=== PATIENT | female | born 1965 | race Caucasian/White ===

== ENCOUNTER 2017-12-11 21:49 | Emergency (ER) | payer BC ==
--- NOTE | 2017-12-11 22:03 | ER Report ---
History and Physical Time Seen By MD: 22:02 Hx. of Stated Complaint: last seizure 18-19 years. tonight she tripped over a little one, landed on her butt and hit her head. a little while later she "passed out" with jaw clench, "pooped herself". happened around 7:30ish HPI/ROS CHIEF COMPLAINT: hit head, possible seizure HISTORY OF PRESENT ILLNESS: This is a 52 year old female. She had fallen backward and landed on her bottom, but hit the back of her head on a bench or something. Was dazed, but did not pass out. Was feeling a little dizzy and having headache. Sitting up and feeling dizzy. She ended up passing out. stated that her left eye began to droop, her jaw clenched and she passed out. No generalized seizure like activity. Did not bite her tongue, but family was trying to protect against this. She did loose control of bowels. This lasted about 2 minutes, estimate from her . She awoke and no evidence of post-ictal or groggy state. She cleaned herself up and then they came here to the ER. She is alert and oriented. She has a headache in the back of her head. Mild nausea. Mild dizziness, more of an off balance feeling. No vision changes. She has a history of two seizures in the past, about 18 years ago. She was on Lamictal after that for a time, but weaned herself off a few years after and has never had any other problems. No recent illnesses. Was feeling fine prior to the fall tonight. Denies any weakness or numbness. Allergies: Coded Allergies: No Known Drug Allergies (Unverified , 12/11/17) Home Meds Active Scripts Ondansetron (ZOFRAN ODT) 4 Mg Tab.rapdis, 4 MG PO Q6H Y for NAUSEA/VOMITING, # 20 TAB.ELYSE 0 Refills Prov:HELGA WRAY MD 12/12/17 Reviewed Nurses Notes: Yes Hx Substance Use Disorder: No Hx Alcohol Use: Yes (social) Constitutional Vital Sign - Last 24 Hours 12/11/17 12/11/17 12/11/17 12/11/17 21:52 21:54 22:00 22:04 Temp 98.1 Pulse 88 91 Resp 12 B/P (MAP) 140/81 140/81 (100) 147/89 (108) Pulse Ox 95 95 O2 Delivery Room Air 12/11/17 12/11/17 12/11/17 12/11/17 22:19 22:30 22:34 23:00 Pulse 88 ??? Resp 9 B/P (MAP) 139/85 (103) 118/67 (84) Pulse Ox 95 12/11/17 12/11/17 12/11/17 12/11/17 23:04 23:19 23:30 23:34 Pulse 82 78 77 Resp 13 B/P (MAP) 134/70 (91) Pulse Ox 94 93 92 12/11/17 12/11/17 23:39 23:54 Pulse ??? 80 Pulse Ox 93 93 Physical Exam General Appearance: The patient is alert. No acute distress. Eyes: Pupils are equal, round. Reactive to light. No pallor, injection or icterus. Extraocular movements are intact. ENT: Mucous membranes are moist. Normal oral mucosa. Posterior oropharynx is normal. Neck: Supple and non tender. No lymphadenopathy. Respiratory: Lungs are clear to auscultation. Cardiovascular: Regular rate and rhythm. No murmurs, gallops or rubs. Normal capillary refill. Gastrointestinal: Abdomen is soft and non tender. Nondistended. Normal active bowel sounds. Neurological: Alert and oriented x3. Cranial nerves II through XII show no acute deficits on my exam. No focal neurologic deficits in the extremities. Skin: Warm and dry. No rashes. Musculoskeletal: No hematoma or injury noted on the head or scalp. No other pain or injury. No tenderness in palpation of the cervical, thoracic and lumbar spine. DIFFERENTIAL DIAGNOSIS: After history and physical exam, differential diagnosis was considered for head injury, passing out with activity that seems to be a seizure, with jaw clench and loss of bowel, but no tongue biting or post-ictal state. Looking for head injury, bleed, etc. Medical Decision Making Data Points Result Diagram: 12/11/17220912/11/172209 Laboratory Hematology Test 12/11/17 22:10 Red Blood Count 4.96 M/uL (4.17-5.56) Mean Corpuscular Volume 96.0 fL (80.0-96.0) Mean Corpuscular Hemoglobin 33.6 pg (26.0-33.0) Mean Corpuscular Hemoglobin Concent 35.0 g/dL (32.0-36.0) Red Cell Distribution Width 12.9 % (11.5-14.5) Mean Platelet Volume 8.0 fL (7.2-11.1) Neutrophils (%) (Auto) 83.8 % (39.4-72.5) Lymphocytes (%) (Auto) 12.3 % (17.6-49.6) Monocytes (%) (Auto) 3.3 % (4.1-12.4) Eosinophils (%) (Auto) 0.3 % (0.4-6.7) Basophils (%) (Auto) 0.3 % (0.3-1.4) Nucleated RBC Relative Count (auto) 0.0 /100WBC Neutrophils # (Auto) 11.3 K/uL (2.0-7.4) Lymphocytes # (Auto) 1.7 K/uL (1.3-3.6) Monocytes # (Auto) 0.4 K/uL (0.3-1.0) Eosinophils # (Auto) 0.0 K/uL (0.0-0.5) Basophils # (Auto) 0.0 K/uL (0.0-0.1) Nucleated RBC Absolute Count (auto) 0.01 K/uL Prothrombin Time 12.5 seconds (12.0-14.4) Prothromb Time International Ratio 0.93 Activated Partial Thromboplast Time 26 seconds (23-35) Sodium Level 138 mmol/L (137-145) Potassium Level 3.8 mmol/L (3.5-5.0) Chloride Level 103 mmol/L (98-107) Carbon Dioxide Level 22 mmol/L (22-31) Blood Urea Nitrogen 8 mg/dl (7-18) Creatinine 0.70 mg/dl (0.52-1.04) Glomerular Filtration Rate Calc > 60.0 Random Glucose 117 mg/dl (75-110) Calcium Level 9.0 mg/dl (8.4-10.2) Total Bilirubin 0.3 mg/dl (0.2-1.3) Aspartate Amino Transf (AST/SGOT) 24 U/L (0-35) Alanine Aminotransferase (ALT/SGPT) 32 U/L (0-56) Alkaline Phosphatase 72 U/L (0-126) Total Protein 7.5 g/dl (6.3-8.2) Albumin 4.6 g/dl (3.5-5.0) Chemistry Test 12/11/17 22:10 White Blood Count 13.5 k/uL (4.5-11.0) Red Blood Count 4.96 M/uL (4.17-5.56) Hemoglobin 16.7 g/dL (12.0-16.0) Hematocrit 47.6 % (34.0-47.0) Mean Corpuscular Volume 96.0 fL (80.0-96.0) Mean Corpuscular Hemoglobin 33.6 pg (26.0-33.0) Mean Corpuscular Hemoglobin Concent 35.0 g/dL (32.0-36.0) Red Cell Distribution Width 12.9 % (11.5-14.5) Platelet Count 258 K/uL (150-450) Mean Platelet Volume 8.0 fL (7.2-11.1) Neutrophils (%) (Auto) 83.8 % (39.4-72.5) Lymphocytes (%) (Auto) 12.3 % (17.6-49.6) Monocytes (%) (Auto) 3.3 % (4.1-12.4) Eosinophils (%) (Auto) 0.3 % (0.4-6.7) Basophils (%) (Auto) 0.3 % (0.3-1.4) Nucleated RBC Relative Count (auto) 0.0 /100WBC Neutrophils # (Auto) 11.3 K/uL (2.0-7.4) Lymphocytes # (Auto) 1.7 K/uL (1.3-3.6) Monocytes # (Auto) 0.4 K/uL (0.3-1.0) Eosinophils # (Auto) 0.0 K/uL (0.0-0.5) Basophils # (Auto) 0.0 K/uL (0.0-0.1) Nucleated RBC Absolute Count (auto) 0.01 K/uL Prothrombin Time 12.5 seconds (12.0-14.4) Prothromb Time International Ratio 0.93 Activated Partial Thromboplast Time 26 seconds (23-35) Glomerular Filtration Rate Calc > 60.0 Calcium Level 9.0 mg/dl (8.4-10.2) Total Bilirubin 0.3 mg/dl (0.2-1.3) Aspartate Amino Transf (AST/SGOT) 24 U/L (0-35) Alanine Aminotransferase (ALT/SGPT) 32 U/L (0-56) Alkaline Phosphatase 72 U/L (0-126) Total Protein 7.5 g/dl (6.3-8.2) Albumin 4.6 g/dl (3.5-5.0) Coagulation Test 12/11/17 22:10 Prothrombin Time 12.5 seconds Prothromb Time International Ratio 0.93 Activated Partial Thromboplast Time 26 seconds EKG/Imaging Imaging CT obtained: Head without contrast. Results: normal, no acute problems. The study was read by the radiologist and was discussed with me. I viewed the images myself on the PACS system. ED Course/Re-evaluation Clinical Indication for ER IV: IV Access ED Course Mild increase in white count and H/H, but normal platelets and coags. Normal comprehensive metabolic panel. Head CT negative as noted. Reviewed this information with the patient and her . This appears to have most likely been a head injury with subsequent syncopal episode, with presence of mild concussion. This based on timing and events, and lack of post ictal state. However, the past history of seizures and the loss of bowel would argue for possible seizure. She will follow-up with her primary care provider. Counseled not to drive until cleared by her doctor. Other precautions for possible seizure were discussed as well. Discussed treatment for concussion as well. Decision to Disposition Date: Dec 11, 2017 Decision to Disposition Time: 23:56 Depart Departure Latest Vital Signs Vital Signs Date Time Temp Pulse Resp B/P (MAP) Pulse Ox O2 Delivery O2 Flow Rate FiO2 12/11/17 23:54 80 93 12/11/17 23:30 134/70 (91) 12/11/17 23:04 13 12/11/17 21:52 98.1 Room Air Impression: Primary Impression: Syncope and collapse Additional Impression: Concussion Condition: Improved Disposition: HOME OR SELF-CARE New Scripts Ondansetron (ZOFRAN ODT) 4 Mg Tab.rapdis 4 MG PO Q6H Y for NAUSEA/VOMITING, #20 TAB.ELYSE 0 Refills Prov: HELGA WRAY MD 12/12/17 Patient Instructions: Concussion (ED), Syncope (ED) Additional Instructions: Concussion symptoms include: headache, nausea/vomiting, dizziness, difficulty concentrating, blurred vision. These symptoms can be mild or moderate. If symptoms become severe, follow-up evaluation is needed. Avoid any heavy physical activity and avoid any activities that may cause repeat head injury. Concussion symptoms can last for days or weeks. There is no way to predict how long these will last. It is okay to sleep after a head injury. Just make sure someone is with you for the next 12 hours and that they check 1-2 hours to make sure you are still doing okay. Return to the ER for any altered mental status changes or confusion, or if one pupil is larger than the other, or if there are other abnormal or severe changes. Use Tylenol as needed for pain for the next 12-24 hours. You can begin using Ibuprofen after about 24 hours. Do not take any medicines containing aspirin for several days. We do not think that this was a seizure, but instead a syncopal episode ( passing out). However, we would tell you not to drive until cleared by primary care or neurology. Avoid any activities that would be dangerous to you or others should you have a seizure while performing the activity. Problem Qualifiers Additional Impression: Concussion Encounter type: initial encounter Loss of consciousness presence/duration: with LOC of 30 min or less Qualified Codes: S06.0X1A - Concussion with loss of consciousness of 30 minutes or less, initial encounter HELGA WRAY MD Dec 11, 2017 22:03
[2017-12-11 22:39] LABS: INR 0.93
[2017-12-11 22:44] LABS: PLATELET COUNT, AUTOMATED 258 K/uL (150-450)
[2017-12-11] MEDS ORDERED: ONDANSETRON 4 MG/2 ML VIAL IVP ONE (22:50)
--- NOTE | 2017-12-11 22:51 | EKG ---
[place] [facility] [place] SOLEDAD ROJAS : [id number] MR: [id number] V: [id number] EXAM DATE: ORDERING PHYSICIAN: HELGA WRAY TECHNOLOGIST: МАРИЯ Sanchez Reason : Blood Pressure : / mmHG Vent. Rate : 093 BPM Atrial Rate : 093 BPM P-R Int : 134 ms QRS Dur : 086 ms QT Int : 378 ms P-R-T Axes : 075 087 055 degrees QTc Int : 469 ms Normal sinus rhythm Possible Left atrial enlargement Nonspecific ST-T findings Prolonged QT Abnormal ECG No previous ECGs available Confirmed by CALVIN YUN ([id number]) on 12/12/2017 6:06:52 AM Referred By: Confirmed By:CALVIN YUN
[2017-12-11 23:30] VITALS: BP 134/70
[2017-12-12] MEDS ORDERED: ONDA4TAB PO (00:01)
[2017-12-12] MEDS ORDERED: ONDANSETRON 4 MG ODT TH SL ONE (00:05)
--- NOTE | 2017-12-12 07:58 | RADIOLOGY IMAGING REPORT ---
FACILITY: [facility] PATIENT NAME: Ramya Salinas : 1965 MR: [id number] V: [id number] EXAM DATE: ORDERING PHYSICIAN: HELGA WRAY TECHNOLOGIST: [place] [facility] [place] Ramya Sal[place] : 1965 Visit/Account:[id number] Date of Sevice: 12/11/2017 CT OF THE BRAIN WITHOUT CONTRAST HISTORY: Fall. Head injury. PROCEDURE: 3.0 mm contiguous axial sections were performed through the brain. Sagittal and coronal r eformats were submitted. COMPARISON: None FINDINGS: BRAIN: Brain and intracranial structures: There is no mass lesion, hemorrhage or acute infarct. Orbits (included portions): Normal. Scalp: Normal. Skull: Normal. Paranasal sinuses and mastoid air cells (included portions): Normal. IMPRESSION: No evidence of acute intracranial abnormality. One of the following dose optimization techniques was utilized in the performance of this exam: Autom ated exposure control; adjustment of the mA and/or kV according to the patient's size; or use of an i terative reconstruction technique. Specific details can be referenced in the facility's radiology C T exam operational policy. Report Dictated By: Jennyfer Bronson MD at 12/11/2017 10:52 PM Report E-Signed By: Jennyfer Bronson MD at 12/11/2017 11:07 PM [id number]
== END 2017-12-12 00:11 | disposition home or self-care (01) ==
LOC: ER 21:55
DX: R55 Syncope and collapse (principal); S06.0X1A Concussion with loss of consciousness of 30 minutes or less, initial encounter; R94.31 Abnormal electrocardiogram [ECG] [EKG]
CPT/HCPCS: 70450; 85025; 85610; 85730; 93005; 96374; 99284; J2405; 82040; 82247; 82310; 82374; 82435; 82565; 82947; 84075; 84132; 84155; 84295; 84450; 84460; 84520